=== PATIENT | female | born 1995 | race Caucasian/White ===

== ENCOUNTER → 2017-03-28 22:08 | Outpatient (CLI) | payer MEDICAID ==
[2015-05-28 09:51] VITALS: BMI 22.1
[~2017-03-28 22:08] MED LIST: FERROUS SULFAT325 MG PO; HYDROCODON-ACE1 EAC7 PO; PRENATAL COMPLE1 TAB PO; TRINESSA1 TAB PO
[2017-03-28 22:53] LABS: APPEARANCE HAZY (CLEAR); BILIRUBIN NEGATIVE (NEGATIVE); COLOR YELLOW (YELLOW); GLUCOSE NEGATIVE (NEGATIVE); KETONE NEGATIVE (NEGATIVE); NITRITE NEGATIVE (NEGATIVE); PROTEIN NEGATIVE (NEGATIVE); UROBILINOGEN NORMAL (NORMAL)
== END | disposition home or self-care (01) ==
LOC: D.LDO 22:08
PROVIDERS: Obstetrics & Gynecology
DX: O26.899 Other specified pregnancy related conditions, unspecified trimester (principal); R10.9 Unspecified abdominal pain

== ENCOUNTER → 2017-06-28 11:24 | Outpatient (CLI) | payer MEDICAID ==
[2015-05-28 09:51] VITALS: BMI 22.1
[2017-06-28 13:03] LABS: APPEARANCE HAZY (CLEAR); BACTERIA FEW /hpf (NONE SEEN); BILIRUBIN NEGATIVE (NEGATIVE); COLOR YELLOW (YELLOW); EPITHELIAL CELLS OCC /hpf (0-5); GLUCOSE NEGATIVE (NEGATIVE); KETONE NEGATIVE (NEGATIVE); MUCUS <1+ /lpf (NONE SEEN); NITRITE NEGATIVE (NEGATIVE); PROTEIN NEGATIVE (NEGATIVE); UROBILINOGEN NORMAL (NORMAL); WHITE CELLS - URINE OCC /hpf (0-5)
[2017-06-28 13:04] LABS: AMORPHOUS SEDIMENT <1+ /lpf (NONE SEEN)
== END | disposition home or self-care (01) ==
LOC: D.ER 11:24 → D.LDO 11:24 → D.ER 11:24 → EDSTATUS 11:33
PROVIDERS: Obstetrics & Gynecology
DX: O26.899 Other specified pregnancy related conditions, unspecified trimester (principal); Z3A.00 Weeks of gestation of pregnancy not specified; R10.30 Lower abdominal pain, unspecified

== ENCOUNTER 2017-07-26 04:51 | Inpatient (IN) | payer MEDICAID ==
[2015-05-28 09:51] VITALS: Wt 68.0 kg
[~2017-07-26 04:51] MED LIST changes: -FERROUS SULFAT325 MG PO; -HYDROCODON-ACE1 EAC7 PO; -PRENATAL COMPLE1 TAB PO
[2017-07-26 06:03] LABS: HEMATOCRIT 22.6 % (36.0-48.0); MCHC 31.4 g/dL (31.0-37.0); MCV 82.8 fL (80.0-100.0); MEAN PLATELET VOLUME 10.3 fL (7.4-10.4); RBC 2.73 10x6/uL (4.00-5.40); WBC 10.4 10x3/uL (4.8-10.8)
[2017-07-26 06:10] LABS: APPEARANCE CLEAR (CLEAR); BILIRUBIN NEGATIVE (NEGATIVE); COLOR YELLOW (YELLOW); GLUCOSE NEGATIVE (NEGATIVE); KETONE NEGATIVE (NEGATIVE); NITRITE NEGATIVE (NEGATIVE); PROTEIN NEGATIVE (NEGATIVE); SPECIFIC GRAVITY 1.005 (1.005-1.020); UROBILINOGEN NORMAL (NORMAL)
[2017-07-26 06:29] LABS: HEMOGLOBIN 7.1 g/dL (12-16)
[2017-07-27 06:45] LABS: BASOPHILS 0.4 % (0-2); EOSINOPHILS 1.4 % (0-7); HEMATOCRIT 29.3 % (36.0-48.0); HEMOGLOBIN 9.4 g/dL (12-16); IMMATURE GRANULOCYTES 0.4 % (0-5); MCHC 32.1 g/dL (31.0-37.0); MCV 81.2 fL (80.0-100.0); MEAN PLATELET VOLUME 10.8 fL (7.4-10.4); MONOCYTES 7.2 % (2-11); NEUTROPHILS 63.6 % (40-80); PLATELET COUNT 181 10x3/uL (130-400); RBC 3.61 10x6/uL (4.00-5.40); RDW 16.4 % (11.5-14.5); WBC 8.4 10x3/uL (4.8-10.8)
[2017-07-27 13:17] LABS: RAPID PLASMA REAGIN Non Reactive (Non Reactive)
== END 2017-07-27 12:30 | disposition home or self-care (01) | DRG 775 ==
LOC: D.LD 04:51 → D.SDCHOLD 05:00 → D.LD 07-27 12:30
PROVIDERS: Obstetrics & Gynecology
PROC: 3E033VJ Introduction of Other Hormone into Peripheral Vein, Percutaneous Approach (ICD-10-PCS; principal; 2017-07-26)
DX: O99.02 Anemia complicating childbirth (principal); Z37.0 Single live birth; Z3A.39 39 weeks gestation of pregnancy; O61.0 Failed medical induction of labor

== ENCOUNTER 2017-07-31 09:38 | Inpatient (IN) | payer MEDICAID ==
[~2017-07-31] VITALS: Ht 160 cm; Wt 69.4 kg
[2017-07-31] MEDS ORDERED: FERROUS SULFAT325 MG PO (11:25)
[2017-07-31] MEDS ORDERED: PRENATAL COMPLE1 TAB PO (11:26)
[2017-07-31 11:27] VITALS: BP 156/96; BMI 27.1
[2017-07-31 12:20] LABS: BASOPHILS 0.6 % (0-2); EOSINOPHILS 2.8 % (0-7); HEMATOCRIT 32.6 % (36.0-48.0); HEMOGLOBIN 10.4 g/dL (12-16); IMMATURE GRANULOCYTES 0.9 % (0-5); LYMPHOCYTES 30.8 % (15-50); MCH 26.3 pg (26.0-34.0); MCHC 31.9 g/dL (31.0-37.0); MCV 82.5 fL (80.0-100.0); MEAN PLATELET VOLUME 11.3 fL (7.4-10.4); MONOCYTES 7.3 % (2-11); NEUTROPHILS 57.6 % (40-80); PLATELET COUNT 187 10x3/uL (130-400); RBC 3.95 10x6/uL (4.00-5.40); RDW 15.7 % (11.5-14.5); WBC 7.7 10x3/uL (4.8-10.8)
[2017-07-31 12:35] LABS: ALBUMIN 2.2 g/dL (3.4-5.0); ALKALINE PHOSPHATASE 300 U/L (46-116); ALT (SGPT) 29 U/L (10-68); APPEARANCE CLEAR (CLEAR); BACTERIA FEW /hpf (NONE SEEN); BILIRUBIN NEGATIVE (NEGATIVE); BILIRUBIN - DIRECT 0.06 mg/dL (0.00-0.30); BILIRUBIN - INDIRECT 0.23 mg/dL (0.00-1.00); BILIRUBIN - TOTAL 0.29 mg/dL (0.2-1.3); CALC OSMOLALITY 274 mosm/kg (275-300); CALCIUM 8.5 mg/dL (8.5-10.1); CARBON DIOXIDE 22.6 mmol/L (21.0-32.0); CHLORIDE - SERUM 106 mmol/L (98-107); COLOR STRAW (YELLOW); CREATININE - SERUM 0.8 mg/dL (0.6-1.3); EPITHELIAL CELLS RARE /hpf (0-5); GLUCOSE NEGATIVE (NEGATIVE); KETONE NEGATIVE (NEGATIVE); NITRITE NEGATIVE (NEGATIVE); POTASSIUM - SERUM 3.7 mmol/L (3.5-5.1); PROTEIN 1+ mg/dL (NEGATIVE); PROTEIN - SERUM 6.6 g/dL (6.4-8.2); RED CELLS - URINE NONE SEEN /hpf (0-5); SODIUM 139 mmol/L (136-145); UREA NITROGEN 10 mg/dL (7-18); URIC ACID 5.9 mg/dL (2.6-7.2); UROBILINOGEN NORMAL (NORMAL); WHITE CELLS - URINE 0-5 /hpf (0-5); eGFR NON AFRICAN AMERICAN > 90 mL/min (90-120)
[2017-07-31 12:39] LABS: GLUCOSE 62 mg/dL (74-106)
[2017-07-31 15:15] VITALS: BP 122/65
[2017-07-31 20:09] VITALS: BP 177/97
[2017-07-31 21:25] VITALS: BP 141/87
[2017-07-31 22:25] VITALS: BP 133/75
[2017-07-31 23:25] VITALS: BP 134/66
[2017-08-01] VITALS (10 sets, daily range): BP systolic 120–143; BP diastolic 70–90; Ht 160 cm; Wt 69.4 kg
[2017-08-01 06:15] LABS: RAPID PLASMA REAGIN Non Reactive (Non Reactive)
[2017-08-01 07:40] LABS: BASOPHILS 0.2 % (0-2); EOSINOPHILS 0.1 % (0-7); HEMATOCRIT 30.4 % (36.0-48.0); HEMOGLOBIN 9.7 g/dL (12-16); IMMATURE GRANULOCYTES 0.4 % (0-5); LYMPHOCYTES 8.7 % (15-50); MCH 26.2 pg (26.0-34.0); MCHC 31.9 g/dL (31.0-37.0); MCV 82.2 fL (80.0-100.0); MEAN PLATELET VOLUME 10.2 fL (7.4-10.4); MONOCYTES 4.2 % (2-11); NEUTROPHILS 86.4 % (40-80); PLATELET COUNT 170 10x3/uL (130-400); RDW 15.6 % (11.5-14.5)
[2017-08-01 07:42] LABS: WBC 15.2 10x3/uL (4.8-10.8)
[2017-08-02 03:41] VITALS: BP 138/90
[2017-08-02 09:31] VITALS: BP 137/86
[2017-08-02] MEDS ORDERED: HYDROCODON-ACE1 EAC7 PO (15:31)
== END 2017-08-02 16:30 | disposition home or self-care (01) | DRG 766 ==
LOC: D.LDO 09:38 → D.LD 13:13
PROVIDERS: Obstetrics & Gynecology
PROC: 10D00Z1 Extraction of Products of Conception, Low, Open Approach (ICD-10-PCS; principal; 2017-07-31 16:00)
DX: O14.14 Severe pre-eclampsia complicating childbirth (principal); Z3A.40 40 weeks gestation of pregnancy; Z37.0 Single live birth; O99.02 Anemia complicating childbirth

== ENCOUNTER 2018-02-18 11:17 | Emergency (ER) | payer MEDICAID ==
[~2018-02-18] VITALS: Ht 160 cm; Wt 47.7 kg
[~2018-02-18 11:17] MED LIST changes: +FERROUS SULFAT325 MG PO; +HYDROCODON-ACE1 EAC7 PO; +PRENATAL COMPLE1 TAB PO
[2018-02-18 11:23] VITALS: Ht 160 cm; Wt 47.7 kg
[2018-02-18] MEDS ORDERED: VOLTAREN75 MG PO (14:08)
[2018-02-18] MEDS ORDERED: ROBAXIN-750750 MG PO (14:08)
[2018-02-18 14:40] VITALS: BP 107/58
== END 2018-02-18 14:42 | disposition home or self-care (01) ==
LOC: D.ER 11:17
DX: R07.9 Chest pain, unspecified (principal); M79.605 Pain in left leg; V49.9XXA Car occupant (driver) (passenger) injured in unspecified traffic accident, initial encounter; Y93.89 Activity, other specified; Y92.410 Unspecified street and highway as the place of occurrence of the external cause

== ENCOUNTER 2018-03-11 21:40 | Emergency (ER) | payer MEDICAID ==
[~2018-03-11] VITALS: Ht 160 cm; Wt 49.4 kg
[~2018-03-11 21:40] MED LIST changes: +ROBAXIN-750750 MG PO; +VOLTAREN75 MG PO
[2018-03-11 21:42] VITALS: Ht 160 cm; Wt 49.4 kg
[2018-03-11] MEDS ORDERED: TYLENOL W/CODEI1 TAB PO (21:57)
[2018-03-11] MEDS ORDERED: KEFLEX500 MG PO (21:57)
[2018-03-11 22:13] VITALS: BP 112/71
== END 2018-03-11 22:15 | disposition home or self-care (01) ==
LOC: D.ER 21:40
DX: K04.7 Periapical abscess without sinus (principal); K08.89 Other specified disorders of teeth and supporting structures

== ENCOUNTER 2018-08-15 12:30 | Day surgery (SDC) | payer MEDICAID ==
[~2018-08-15] VITALS: Ht 157.5 cm; Wt 50.9 kg
[~2018-08-15 12:30] MED LIST changes: +KEFLEX500 MG PO; +TYLENOL W/CODEI1 TAB PO
[2018-08-15 13:14] LABS: BASOPHILS 0.5 % (0-2); EOSINOPHILS 1.6 % (0-7); HEMATOCRIT 36.7 % (36.0-48.0); HEMOGLOBIN 12.4 g/dL (12-16); IMMATURE GRANULOCYTES 0.2 % (0-5); MCH 29.7 pg (26.0-34.0); MCHC 33.8 g/dL (31.0-37.0); MCV 87.8 fL (80.0-100.0); MEAN PLATELET VOLUME 8.9 fL (7.4-10.4); MONOCYTES 6.7 % (2-11); RBC 4.18 10x6/uL (4.00-5.40); RDW 13.7 % (11.5-14.5); WBC 8.3 10x3/uL (4.8-10.8)
[2018-08-15 13:20] LABS: PLATELET COUNT 330 10x3/uL (130-400)
[2018-08-15 13:22] LABS: APPEARANCE HAZY (CLEAR); BILIRUBIN NEGATIVE (NEGATIVE); COLOR STRAW (YELLOW); GLUCOSE NEGATIVE (NEGATIVE); KETONE NEGATIVE (NEGATIVE); NITRITE NEGATIVE (NEGATIVE); PROTEIN NEGATIVE (NEGATIVE); UROBILINOGEN NORMAL (NORMAL)
[2018-08-15 13:26] LABS: EPITHELIAL CELLS 0-5 /hpf (0-5); WHITE CELLS - URINE 0-5 /hpf (0-5)
[2018-08-15 13:27] LABS: AMORPHOUS SEDIMENT >1+ /lpf (NONE SEEN); BACTERIA MODERATE /hpf (NONE SEEN); MUCUS <1+ /lpf (NONE SEEN)
[2018-08-15 13:37] LABS: ALKALINE PHOSPHATASE 78 U/L (46-116); ALT (SGPT) 16 U/L (10-68); CALC OSMOLALITY 277 mosm/kg (275-300); CALCIUM 9.3 mg/dL (8.5-10.1); CARBON DIOXIDE 27.9 mmol/L (21.0-32.0); CHLORIDE - SERUM 101 mmol/L (98-107); CREATININE - SERUM 0.7 mg/dL (0.6-1.3); GLUCOSE 93 mg/dL (74-106); POTASSIUM - SERUM 3.5 mmol/L (3.5-5.1); PROTEIN - SERUM 8.1 g/dL (6.4-8.2); SODIUM 140 mmol/L (136-145); UREA NITROGEN 9 mg/dL (7-18); eGFR NON AFRICAN AMERICAN > 90 mL/min (90-120)
[2018-08-15 13:48] LABS: HCG SERUM POSITIVE (NEGATIVE)
[2018-08-15 18:15] VITALS: BP 123/84
[2018-08-15 18:37] VITALS: BP 123/84; Ht 157.5 cm; Wt 50.9 kg
[2018-08-15 19:22] VITALS: BP 109/65
[2018-08-16] VITALS (10 sets, daily range): BP systolic 93–115; BP diastolic 50–72
[2018-08-16 05:11] LABS: BASOPHILS 0.5 % (0-2); EOSINOPHILS 2.6 % (0-7); HEMATOCRIT 31.7 % (36.0-48.0); HEMOGLOBIN 10.5 g/dL (12-16); IMMATURE GRANULOCYTES 0.1 % (0-5); MCH 29.4 pg (26.0-34.0); MCHC 33.1 g/dL (31.0-37.0); MCV 88.8 fL (80.0-100.0); MEAN PLATELET VOLUME 8.8 fL (7.4-10.4); MONOCYTES 7.3 % (2-11); NEUTROPHILS 51.5 % (40-80); PLATELET COUNT 287 10x3/uL (130-400); RBC 3.57 10x6/uL (4.00-5.40); RDW 13.8 % (11.5-14.5); WBC 8.7 10x3/uL (4.8-10.8)
[2018-08-16] MEDS ORDERED: PERCOCET 5-3251 TAB PO (14:16)
[2018-08-16] MEDS ORDERED: IBUPROFEN800 MG PO (14:16)
== END 2018-08-16 18:01 | disposition home or self-care (01) ==
LOC: OBSVTIME → D.ER 12:30 → D.OPS 12:30 → D.EDHOLD 17:26 → D.LD 17:26 → D.ER 17:26 → D.LD 17:26 → D.EDHOLD 17:52 → D.LD 17:52 → D.ER 18:02 → EDSTATUS 08-16 09:45 → OBSVTIME 08-16 14:55 → D.LD 08-16 18:01 → D.OPS 08-16 18:01
PROVIDERS: Emergency Medicine; Obstetrics & Gynecology
DX: O00.101 Right tubal pregnancy without intrauterine pregnancy (principal); O99.334 Smoking (tobacco) complicating childbirth

== ENCOUNTER 2018-09-09 19:44 | Emergency (ER) | payer MEDICAID ==
[~2018-09-09] VITALS: Ht 157.5 cm; Wt 54.5 kg
[~2018-09-09 19:44] MED LIST changes: +IBUPROFEN800 MG PO; +PERCOCET 5-3251 TAB PO
[2018-09-09 19:58] VITALS: Ht 157.5 cm; Wt 54.5 kg
[2018-09-09 20:44] LABS: BASOPHILS 0.6 % (0-2); EOSINOPHILS 2.8 % (0-7); HEMATOCRIT 31.5 % (36.0-48.0); HEMOGLOBIN 10.4 g/dL (12-16); IMMATURE GRANULOCYTES 0.1 % (0-5); MCH 29.7 pg (26.0-34.0); MEAN PLATELET VOLUME 9.5 fL (7.4-10.4); MONOCYTES 9.1 % (2-11); NEUTROPHILS 48.4 % (40-80); PLATELET COUNT 273 10x3/uL (130-400); RDW 13.8 % (11.5-14.5); WBC 7.1 10x3/uL (4.8-10.8)
[2018-09-09 20:55] LABS: ALBUMIN 3.6 g/dL (3.4-5.0); ALKALINE PHOSPHATASE 62 U/L (46-116); ALT (SGPT) 11 U/L (10-68); BILIRUBIN - TOTAL 0.31 mg/dL (0.2-1.3); CALC OSMOLALITY 278 mosm/kg (275-300); CALCIUM 8.4 mg/dL (8.5-10.1); CARBON DIOXIDE 24.4 mmol/L (21.0-32.0); CHLORIDE - SERUM 104 mmol/L (98-107); CREATININE - SERUM 0.8 mg/dL (0.6-1.3); GLUCOSE 90 mg/dL (74-106); POTASSIUM - SERUM 3.3 mmol/L (3.5-5.1); SODIUM 139 mmol/L (136-145); UREA NITROGEN 15 mg/dL (7-18); eGFR NON AFRICAN AMERICAN > 90 mL/min (90-120)
[2018-09-09 21:02] LABS: HCG SERUM NEGATIVE (NEGATIVE)
[2018-09-09 21:11] LABS: APPEARANCE CLEAR (CLEAR); BILIRUBIN NEGATIVE (NEGATIVE); COLOR STRAW (YELLOW); GLUCOSE NEGATIVE (NEGATIVE); KETONE NEGATIVE (NEGATIVE); NITRITE NEGATIVE (NEGATIVE); PROTEIN NEGATIVE (NEGATIVE); UROBILINOGEN NORMAL (NORMAL)
[2018-09-09] MEDS ORDERED: TYLENOL W/CODEI1 TAB PO (22:50)
[2018-09-09 23:15] VITALS: BP 117/73
== END 2018-09-09 23:15 | disposition home or self-care (01) ==
LOC: D.ER 19:44
PROVIDERS: Family Medicine
DX: N83.202 Unspecified ovarian cyst, left side (principal)

== ENCOUNTER 2019-02-08 15:16 | Emergency (ER) | payer SELFPAY ==
[~2019-02-08] VITALS: Ht 157.5 cm; Wt 60.9 kg
[2019-02-08 15:21] VITALS: BP 111/62; Ht 157.5 cm; Wt 60.9 kg
[2019-02-08 15:52] LABS: BASOPHILS 0.2 % (0-2); EOSINOPHILS 1.2 % (0-7); HEMATOCRIT 31.3 % (36.0-48.0); HEMOGLOBIN 10.7 g/dL (12-16); IMMATURE GRANULOCYTES 0.4 % (0-5); LYMPHOCYTES 22.5 % (15-50); MCHC 34.2 g/dL (31.0-37.0); MCV 87.7 fL (80.0-100.0); MEAN PLATELET VOLUME 8.8 fL (7.4-10.4); MONOCYTES 7.6 % (2-11); NEUTROPHILS 68.1 % (40-80); PLATELET COUNT 237 10x3/uL (130-400); RBC 3.57 10x6/uL (4.00-5.40); RDW 13.6 % (11.5-14.5); WBC 9.3 10x3/uL (4.8-10.8)
[2019-02-08 16:07] LABS: ALBUMIN 3.1 g/dL (3.4-5.0); ALKALINE PHOSPHATASE 54 U/L (46-116); ALT (SGPT) 14 U/L (10-68); BILIRUBIN - TOTAL 0.48 mg/dL (0.2-1.3); CALC OSMOLALITY 269 mosm/kg (275-300); CALCIUM 8.9 mg/dL (8.5-10.1); CARBON DIOXIDE 25.8 mmol/L (21.0-32.0); CHLORIDE - SERUM 103 mmol/L (98-107); CREATININE - SERUM 0.6 mg/dL (0.6-1.3); GLUCOSE 80 mg/dL (74-106); POTASSIUM - SERUM 3.2 mmol/L (3.5-5.1); PROTEIN - SERUM 6.8 g/dL (6.4-8.2); SODIUM 136 mmol/L (136-145); UREA NITROGEN 10 mg/dL (7-18); eGFR NON AFRICAN AMERICAN > 90 mL/min (90-120)
[2019-02-08 17:44] LABS: APPEARANCE CLEAR (CLEAR); BILIRUBIN NEGATIVE (NEGATIVE); COLOR YELLOW (YELLOW); GLUCOSE NEGATIVE (NEGATIVE); KETONE NEGATIVE (NEGATIVE); NITRITE NEGATIVE (NEGATIVE); PROTEIN NEGATIVE (NEGATIVE); UROBILINOGEN NORMAL (NORMAL)
== END 2019-02-08 19:01 | disposition left against medical advice (07) ==
LOC: D.ER 15:16
PROVIDERS: Family Medicine
DX: O26.892 Other specified pregnancy related conditions, second trimester (principal); Z3A.16 16 weeks gestation of pregnancy

== ENCOUNTER 2019-03-05 13:44 | Emergency (ER) | payer MEDICAID ==
[~2019-03-05] VITALS: Ht 157.5 cm; Wt 62.3 kg
[2019-03-05 14:16] VITALS: Ht 157.5 cm; Wt 62.3 kg
[2019-03-05] MEDS ORDERED: PRENAVITE1 TAB PO (14:20)
[2019-03-05] MEDS ORDERED: CYCLOBENZAPRINE10 MG PO (15:35)
[2019-03-05 15:57] VITALS: BP 118/60
== END 2019-03-05 15:58 | disposition home or self-care (01) ==
LOC: D.ER 13:44
DX: O26.891 Other specified pregnancy related conditions, first trimester (principal); M54.32 Sciatica, left side

== ENCOUNTER → 2019-04-09 20:55 | Outpatient (CLI) | payer MEDICAID ==
[2019-03-05 14:16] VITALS: BMI 25.1
[~2019-04-09 20:55] MED LIST changes: +CYCLOBENZAPRINE10 MG PO; +PRENAVITE1 TAB PO
== END | disposition home or self-care (01) ==
LOC: D.LDO 20:55
PROVIDERS: ATTEND Obstetrics & Gynecology
DX: O46.90 Antepartum hemorrhage, unspecified, unspecified trimester (principal); Z3A.00 Weeks of gestation of pregnancy not specified

== ENCOUNTER → 2019-04-18 16:18 | Outpatient (CLI) | payer MEDICAID ==
[2019-03-05 14:16] VITALS: BMI 25.1
== END | disposition home or self-care (01) ==
LOC: D.LDO 16:18
PROVIDERS: ATTEND Obstetrics & Gynecology
DX: O26.893 Other specified pregnancy related conditions, third trimester (principal); M54.30 Sciatica, unspecified side; Z3A.28 28 weeks gestation of pregnancy

== ENCOUNTER → 2019-05-07 17:29 | Outpatient (CLI) | payer MEDICAID ==
[2019-03-05 14:16] VITALS: BMI 25.1
[2019-05-07 18:05] LABS: APPEARANCE CLEAR (CLEAR); BILIRUBIN NEGATIVE (NEGATIVE); COLOR YELLOW (YELLOW); GLUCOSE NEGATIVE (NEGATIVE); KETONE NEGATIVE (NEGATIVE); NITRITE NEGATIVE (NEGATIVE); PROTEIN NEGATIVE (NEGATIVE); UROBILINOGEN NORMAL (NORMAL)
== END | disposition home or self-care (01) ==
LOC: D.LDO 17:29
PROVIDERS: ATTEND Obstetrics & Gynecology
DX: O26.899 Other specified pregnancy related conditions, unspecified trimester (principal); Z3A.00 Weeks of gestation of pregnancy not specified; R55 Syncope and collapse; R42 Dizziness and giddiness

== ENCOUNTER 2019-11-02 15:52 | Emergency (ER) | payer OTHER ==
[~2019-11-02] VITALS: Ht 157.5 cm; Wt 63.6 kg
[2019-11-02 16:04] VITALS: Ht 157.5 cm; Wt 63.6 kg
[2019-11-02] MEDS ORDERED: CYCLOBENZAPRINE10 MG PO (17:24)
[2019-11-02 18:10] VITALS: BP 108/72
== END 2019-11-02 18:11 | disposition home or self-care (01) ==
LOC: D.ER 15:52
DX: M54.2 Cervicalgia (principal); V89.2XXA Person injured in unspecified motor-vehicle accident, traffic, initial encounter; Y93.9 Activity, unspecified; Y92.9 Unspecified place or not applicable

== ENCOUNTER 2020-04-04 00:46 | Emergency (ER) | payer MEDICAID ==
[~2020-04-04] VITALS: Ht 157.5 cm; Wt 54.5 kg
[2020-04-04 00:52] VITALS: Ht 157.5 cm; Wt 54.5 kg
[2020-04-04] MEDS ORDERED: KEFLEX500 MG PO (01:10)
[2020-04-04] MEDS ORDERED: ULTRAM50 MG PO (01:10)
[2020-04-04 01:29] VITALS: BP 120/70
== END 2020-04-04 01:30 | disposition home or self-care (01) ==
LOC: D.ER 00:46
DX: S91.331A Puncture wound without foreign body, right foot, initial encounter (principal); W34.00XA Accidental discharge from unspecified firearms or gun, initial encounter; Y93.9 Activity, unspecified; Y92.9 Unspecified place or not applicable

== ENCOUNTER 2020-11-13 20:13 | Emergency (ER) | payer OTHER ==
[~2020-11-13] VITALS: Ht 157.5 cm; Wt 49.9 kg
[~2020-11-13 20:13] MED LIST changes: +ULTRAM50 MG PO
[2020-11-13 20:17] VITALS: Ht 157.5 cm; Wt 49.9 kg
[2020-11-13 21:18] LABS: BASOPHILS 0.5 % (0-2); EOSINOPHILS 0.8 % (0-7); HEMATOCRIT 36.9 % (36.0-48.0); HEMOGLOBIN 12.4 g/dL (12-16); LYMPHOCYTES 22.7 % (15-50); MCH 30.4 pg (26.0-34.0); MCHC 33.7 g/dL (31.0-37.0); MCV 90.2 fL (80.0-100.0); MEAN PLATELET VOLUME 7.8 fL (7.4-10.4); MONOCYTES 6.9 % (2-11); NEUTROPHILS 69.1 % (40-80); RBC 4.09 10x6/uL (4.00-5.40); RDW 13.1 % (11.5-14.5); WBC 10.2 10x3/uL (4.8-10.8)
[2020-11-13 21:26] LABS: PLATELET COUNT 299 10x3/uL (130-400)
[2020-11-13 21:30] LABS: CALC OSMOLALITY 269 mosm/kg (275-300); CALCIUM 9.3 mg/dL (8.5-10.1); CARBON DIOXIDE 24.4 mmol/L (21.0-32.0); CHLORIDE - SERUM 98 mmol/L (98-107); CREATININE - SERUM 0.7 mg/dL (0.6-1.3); GLUCOSE 83 mg/dL (74-106); POTASSIUM - SERUM 3.4 mmol/L (3.5-5.1); SODIUM 136 mmol/L (136-145); UREA NITROGEN 10 mg/dL (7-18); eGFR NON AFRICAN AMERICAN > 90 mL/min (90-120)
[2020-11-13 21:31] LABS: HCG SERUM POSITIVE (NEGATIVE)
[2020-11-13 21:36] LABS: BILIRUBIN NEGATIVE (NEGATIVE); KETONE MODERATE mg/dL (NEGATIVE); NITRITE NEGATIVE (NEGATIVE); UROBILINOGEN NORMAL mg/dL (< 2)
[2020-11-13 22:01] LABS: ALBUMIN 4.3 g/dL (3.4-5.0); ALKALINE PHOSPHATASE 59 U/L (30-120); ALT (SGPT) 17 U/L (10-68); BILIRUBIN - TOTAL 0.81 mg/dL (0.2-1.3); HCG - QUANTITATIVE (MATERNAL) 49727 mIU/mL; PROTEIN - SERUM 7.9 g/dL (6.4-8.2)
[2020-11-13 23:31] VITALS: BP 125/61
== END 2020-11-13 23:31 | disposition home or self-care (01) ==
LOC: D.ER 20:13
PROVIDERS: Student in an Organized Health Care Education/Training Program
DX: O26.891 Other specified pregnancy related conditions, first trimester (principal); Z3A.01 Less than 8 weeks gestation of pregnancy; R10.31 Right lower quadrant pain

== ENCOUNTER 2020-11-15 15:13 | Emergency (ER) | payer OTHER ==
[~2020-11-15] VITALS: Ht 157.5 cm; Wt 50.0 kg
[2020-11-15 15:18] VITALS: Ht 157.5 cm; Wt 50.0 kg
[2020-11-15 17:40] LABS: BASOPHILS 0.4 % (0-2); EOSINOPHILS 0.6 % (0-7); HEMOGLOBIN 12.3 g/dL (12-16); LYMPHOCYTES 18.6 % (15-50); MCH 30.8 pg (26.0-34.0); MCHC 34.2 g/dL (31.0-37.0); MCV 89.9 fL (80.0-100.0); MEAN PLATELET VOLUME 7.3 fL (7.4-10.4); MONOCYTES 6.5 % (2-11); NEUTROPHILS 73.9 % (40-80); PLATELET COUNT 291 10x3/uL (130-400); RBC 4.01 10x6/uL (4.00-5.40); RDW 13.5 % (11.5-14.5)
[2020-11-15 17:41] LABS: CALC OSMOLALITY 272 mosm/kg (275-300); CALCIUM 9.3 mg/dL (8.5-10.1); CARBON DIOXIDE 20.7 mmol/L (21.0-32.0); CHLORIDE - SERUM 102 mmol/L (98-107); CREATININE - SERUM 0.6 mg/dL (0.6-1.3); GLUCOSE 102 mg/dL (74-106); POTASSIUM - SERUM 3.5 mmol/L (3.5-5.1); SODIUM 137 mmol/L (136-145); UREA NITROGEN 10 mg/dL (7-18); eGFR NON AFRICAN AMERICAN > 90 mL/min (90-120)
[2020-11-15 17:48] LABS: ALKALINE PHOSPHATASE 51 U/L (30-120); ALT (SGPT) 17 U/L (10-68); BILIRUBIN - TOTAL 0.58 mg/dL (0.2-1.3); PROTEIN - SERUM 7.1 g/dL (6.4-8.2)
[2020-11-15] MEDS ORDERED: REGLAN10 MG PO (19:03)
[2020-11-15 19:04] LABS: BILIRUBIN NEGATIVE (NEGATIVE); KETONE NEGATIVE (NEGATIVE); NITRITE NEGATIVE (NEGATIVE); UROBILINOGEN NORMAL mg/dL (< 2)
[2020-11-15 19:29] VITALS: BP 107/65
== END 2020-11-15 19:30 | disposition home or self-care (01) ==
LOC: D.ER 15:13
PROVIDERS: Family Medicine
DX: O02.0 Blighted ovum and nonhydatidiform mole (principal)

== ENCOUNTER 2020-11-25 15:37 | Emergency (ER) | payer OTHER ==
[~2020-11-25] VITALS: Ht 157.5 cm; Wt 54.7 kg
[~2020-11-25 15:37] MED LIST changes: +REGLAN10 MG PO
[2020-11-25 15:50] VITALS: BP 96/66; Ht 157.5 cm; Wt 54.7 kg
[2020-11-25 16:23] LABS: BASOPHILS 0.4 % (0-2); EOSINOPHILS 0.3 % (0-7); HEMATOCRIT 35.2 % (36.0-48.0); LYMPHOCYTES 15.2 % (15-50); MCH 30.3 pg (26.0-34.0); MCHC 34.1 g/dL (31.0-37.0); MCV 88.8 fL (80.0-100.0); MEAN PLATELET VOLUME 7.5 fL (7.4-10.4); MONOCYTES 5.5 % (2-11); NEUTROPHILS 78.6 % (40-80); PLATELET COUNT 312 10x3/uL (130-400); RBC 3.96 10x6/uL (4.00-5.40); RDW 13.5 % (11.5-14.5); WBC 9.9 10x3/uL (4.8-10.8)
[2020-11-25 16:45] LABS: CALC OSMOLALITY 269 mosm/kg (275-300); CALCIUM 8.8 mg/dL (8.5-10.1); CARBON DIOXIDE 21.7 mmol/L (21.0-32.0); CHLORIDE - SERUM 102 mmol/L (98-107); CREATININE - SERUM 0.6 mg/dL (0.6-1.3); GLUCOSE 106 mg/dL (74-106); POTASSIUM - SERUM 3.7 mmol/L (3.5-5.1); SODIUM 135 mmol/L (136-145); UREA NITROGEN 12 mg/dL (7-18); eGFR NON AFRICAN AMERICAN > 90 mL/min (90-120)
[2020-11-25 17:11] LABS: BILIRUBIN NEGATIVE (NEGATIVE); KETONE MODERATE mg/dL (NEGATIVE); NITRITE NEGATIVE (NEGATIVE); UROBILINOGEN 4 mg/dL (< 2)
[2020-11-25 17:26] LABS: ALBUMIN 3.7 g/dL (3.4-5.0); ALKALINE PHOSPHATASE 48 U/L (30-120); ALT (SGPT) 27 U/L (10-68); AMYLASE - SERUM 33 U/L (25-115); BILIRUBIN - TOTAL 0.67 mg/dL (0.2-1.3); HCG - QUANTITATIVE (MATERNAL) 172222 mIU/mL; LIPASE 89 U/L (73-393); PROTEIN - SERUM 7.2 g/dL (6.4-8.2)
[2020-11-25 17:27] LABS: TROPONIN-I < 0.017 ng/mL (0.000-0.060)
[2020-11-25] MEDS ORDERED: REGLAN10 MG PO (17:45)
== END 2020-11-25 18:26 | disposition home or self-care (01) ==
LOC: D.ER 15:37
PROVIDERS: Family Medicine
DX: O26.891 Other specified pregnancy related conditions, first trimester (principal); Z3A.10 10 weeks gestation of pregnancy; R11.2 Nausea with vomiting, unspecified